=== PATIENT | female | born 2000 | race Hispanic/Latino ===

== ENCOUNTER 2022-08-26 03:47 | Inpatient (IN) | payer OTHER ==
[2022-08-26] MEDS ORDERED: Methylergonovine 0.2 MG/ML VIAL IM PRN ×2 (04:25→13:35)
[2022-08-26] MEDS ORDERED: Diphenoxylate HCl/Atropine Tablet PO PRN (04:25)
[2022-08-26] MEDS ORDERED: hydrALAZINE 20 MG/ML VIAL SLOW IVP PRN ×2 (04:25→13:35)
[2022-08-26] MEDS ORDERED: Carboprost 250 MCG/ML AMP IM PRN (04:25)
[2022-08-26] MEDS ORDERED: Lidocaine 1% (PF) 30 ML VIAL SC PRN (04:25)
[2022-08-26] MEDS ORDERED: Ondansetron PF 4 MG/2 ML Vial IVP PRN ×3 (04:25→13:35)
[2022-08-26] MEDS ORDERED: Tranexamic Acid 1,000 MG/10 ML VIAL IVP PRN (04:25)
[2022-08-26] MEDS ORDERED: Promethazine HCl 25 MG/ML VIAL IM PRN ×2 (04:25→06:09)
[2022-08-26] MEDS ORDERED: Misoprostol 200 MCG TAB PR PRN (04:25)
[2022-08-26] MEDS ORDERED: NS w/ Oxytocin 30 units 500 ML IV SCH ×3 (04:30→13:45)
[2022-08-26 04:50] VITALS: BMI 30.8
[2022-08-26 04:53] LABS: Hemoglobin 12.6 g/dL (12.0-15.5); Mean Corpuscular Hemoglobin 25.1 pg (27.0-33.0); Mean Corpuscular Volume 73.9 fl (81.6-98.3); Mean Platelet Volume 10.7 fl (7.4-10.4); Platelet Count 307 10x3/uL (150-450); RBC Distribution Width 22.6 % (11.5-14.5); Red Blood Cell (RBC) Count 5.02 10x6/uL (3.90-5.03)
[2022-08-26] MEDS ORDERED: Fentanyl 2 mcg/Bup 0.1% Cadd 100 ML ONE (04:53)
[2022-08-26 05:17] LABS: Syphilis Antibody Nonreactive (Nonreactive); Syphilis Antibody Index 0.05 S/CO (<1.00 Non-Reactive)
[2022-08-26 05:18] LABS: HBSAg Index 0.12 S/CO (0-0.99); Hep B Surf Ag - L&D Non-Reactive S/CO (NonReactive)
[2022-08-26] MEDS ORDERED: Moisturizing Cream (Eucerin) 113 GM JAR TOP PRN (06:09)
[2022-08-26] MEDS ORDERED: diphenhydrAMINE 50 MG/ML VIAL IVP PRN (06:09)
[2022-08-26] MEDS ORDERED: ePHEDrine Sulfate 50 MG/10 ML VIAL SLOW IVP PRN (06:09)
[2022-08-26] MEDS ORDERED: Naloxone HCl 0.4 mg/ml Vial IVP PRN ×2 (06:09)
[2022-08-26] MEDS ORDERED: Lactated Ringer's 500 ML IV PRN (06:09)
[2022-08-26] MEDS ORDERED: Acetaminophen 325 MG TAB PO PRN (06:09)
[2022-08-26] MEDS ORDERED: Fentanyl 2 mcg/Bupivacaine 0.1% Cassette 100 ML EPIDURAL SCH (06:15)
[2022-08-26] MEDS ORDERED: [UNRECOGNIZED DRUG - REMARK] FS PRN (06:15)
[2022-08-26 06:24] LABS: ALT (SGPT) 18 U/L (8-55); AST (SGOT) 19 U/L (5-30); Albumin 3.5 g/dL (3.5-5.0); Alkaline Phosphatase 233 U/L (40-100); Anion Gap 16 mmol/L (10-20); BUN (Urea Nitrogen) 9 mg/dL (8.4-21.0); Bilirubin, Total 0.3 mg/dL (0.2-1.2); Calc. Creatinine Clearance 168 mL/min (70-130); Calcium 9.4 mg/dL (7.8-10.44); Carbon Dioxide 18 mmol/L (22-29); Chloride 109 mmol/L (98-107); Estimated GFR 131; Globulin 3.2 g/dL (2.4-3.5); Glucose 98 mg/dL (70-105); Potassium 4.6 mmol/L (3.5-5.1); Protein, Total 6.7 g/dL (6.0-8.3); Sodium 138 mmol/L (136-145)
[2022-08-26 06:53] LABS: Creatinine, Urine 29.91 mg/dL (47-110); Protein, Urine Random Quant Less than 10 mg/dL (1-14)
[2022-08-26] MEDS ORDERED: Bupivacaine 0.25% HCL 30 ML VIAL ONE (08:00)
[2022-08-26] MEDS ORDERED: fentaNYL 50 mcg/mL 1 mL Vial ONE (08:59)
[2022-08-26] MEDS ORDERED: Acetaminophen 500 MG TAB PO SCH (11:30)
[2022-08-26] MEDS ORDERED: Ampicillin 2 GM VIAL ONE (11:31)
[2022-08-26] MEDS: Lactated Ringer's 1,000 ML IV SCH ×2 (11:44→13:42)
[2022-08-26] MEDS ORDERED: Gentamicin Sulfate 120 MG in Premix Bag 1 BAG IVPB SCH (12:00)
[2022-08-26] MEDS ORDERED: AMPicillin 2,000 MG in Syringe 0 ML SLOW IVP SCH (12:00)
[2022-08-26] MEDS ORDERED: GENTAMICIN IVPB SCH ×2 (12:00)
[2022-08-26] MEDS ORDERED: ADMIXTURE FEE IVPB SCH (12:00)
[2022-08-26] MEDS ORDERED: SODIUM CHLORIDE 0.9% IVPB SCH (12:00)
[2022-08-26] MEDS ORDERED: Ampicillin 2 GM in Sodium Chloride 0.9% 100 ML IVPB SCH (12:00)
[2022-08-26] MEDS ORDERED: SODIUM CHLORIDE IVPB SCH (12:00)
[2022-08-26 12:17] LABS: SARS-CoV-2 NAA Rapid Test Not Detected (NotDetected)
[2022-08-26] MEDS ORDERED: Lanolin Ointment 7 GM TUBE TOP PRN (13:35)
[2022-08-26] MEDS ORDERED: Milk Of Magnesia 30 ML UDCUP PO PRN (13:35)
[2022-08-26] MEDS ORDERED: Benzocaine-Menthol 82.5 ML CAN TOP PRN (13:35)
[2022-08-26] MEDS ORDERED: Bisacodyl 10 MG SUPP PR PRN (13:35)
[2022-08-26] MEDS ORDERED: Misoprostol 200 MCG TAB VAG PRN (13:35)
[2022-08-26] MEDS ORDERED: Preparation H Ointment 28 GM TUBE PR PRN (13:35)
[2022-08-26] MEDS ORDERED: Boostrix 0.5 ML (Tdap) VIAL (>/=7 yrs of age) IM ONE (14:00)
[2022-08-26] MEDS: Clindamycin/D5W 900 MG in Premix Bag 1 BAG IVPB SCH ×2 (15:14→21:25)
[2022-08-26] MEDS: Ibuprofen 800 MG TAB PO SCH ×2 (15:16→21:25)
[2022-08-26] MEDS: Ferrous Sulfate 325 MG TAB PO SCH (18:17)
[2022-08-26] MEDS ORDERED: Gentamicin 80 MG/2 ML VIAL IVPB SCH (19:30)
[2022-08-26] MEDS: ADMIXTURE FEE IVPB SCH (21:00)
[2022-08-26] MEDS: GENTAMICIN IVPB SCH (21:00)
[2022-08-26] MEDS ORDERED: Nitrofurantoin Monohyd/M-Cryst 100 MG CAP PO SCH (21:00)
[2022-08-26] MEDS: SODIUM CHLORIDE IVPB SCH (21:00)
[2022-08-26] MEDS: Docusate 100 MG CAP PO SCH (21:25)
[2022-08-27 02:45] LABS: #Eosinphils 0.2 10x3/uL (0.0-0.5); #Monocytes 1.3 10x3/uL (0.0-1.1); %Basophils 0.2 % (0.0-2.0); %Eosinophils 1.1 % (0.0-6.0); %Lymphocytes 12.3 % (18.0-47.0); %Monocytes 7.4 % (0.0-10.0); %Neutrophils 78.3 % (40.0-75.0); Hemoglobin 10.3 g/dL (12.0-15.5); Mean Corpuscular Hemoglobin 25.2 pg (27.0-33.0); Mean Corpuscular Volume 74.1 fl (81.6-98.3); Mean Platelet Volume 11.2 fl (7.4-10.4); Platelet Count 257 10x3/uL (150-450); RBC Distribution Width 22.2 % (11.5-14.5); Red Blood Cell (RBC) Count 4.09 10x6/uL (3.90-5.03); White Blood Cell (WBC) Count 17.9 10x3/uL (3.5-10.5)
[2022-08-27] MEDS: SODIUM CHLORIDE IVPB SCH ×3 (05:00→19:51)
[2022-08-27] MEDS: ADMIXTURE FEE IVPB SCH ×3 (05:00→19:51)
[2022-08-27] MEDS: GENTAMICIN IVPB SCH ×3 (05:00→19:51)
[2022-08-27] MEDS: Clindamycin/D5W 900 MG in Premix Bag 1 BAG IVPB SCH ×3 (05:03→21:07)
[2022-08-27] MEDS: Ibuprofen 800 MG TAB PO SCH ×3 (05:03→21:05)
[2022-08-27] MEDS: Docusate 100 MG CAP PO SCH ×2 (07:41→21:05)
[2022-08-27] MEDS: Prenatal Vitamin 1 TAB PO SCH (07:41)
[2022-08-27] MEDS: Ferrous Sulfate 325 MG TAB PO SCH (13:01)
[2022-08-28] MEDS: Ferrous Sulfate 325 MG TAB PO SCH ×2 (02:42→08:15)
[2022-08-28] MEDS: Ibuprofen 800 MG TAB PO SCH (06:54)
[2022-08-28] MEDS: Docusate 100 MG CAP PO SCH (08:15)
[2022-08-28] MEDS: Prenatal Vitamin 1 TAB PO SCH (08:15)
[2022-08-28 08:52] VITALS: BP 109/59; TEMP 98.1
== END 2022-08-28 12:40 | disposition home or self-care (01) | DRG 806 ==
LOC: CSHLD/OP 03:47 → CSHLD 04:14 → CSHPED 09:23 → CSHLD 09:26 → CSHPP 17:46
PROVIDERS: ADMIT Family Medicine; ATTEND Obstetrics & Gynecology
PROC: 10E0XZZ Delivery of Products of Conception, External Approach (ICD-10-PCS; principal; 2022-08-26)
PROC: 0KQM0ZZ Repair Perineum Muscle, Open Approach (ICD-10-PCS; 2022-08-26)
PROC: 10907ZC Drainage of Amniotic Fluid, Therapeutic from Products of Conception, Via Natural or Artificial Opening (ICD-10-PCS; 2022-08-26)
DX: O98.82 Other maternal infectious and parasitic diseases complicating childbirth (principal); N12 Tubulo-interstitial nephritis, not specified as acute or chronic; Z37.0 Single live birth; Z3A.38 38 weeks gestation of pregnancy; Z79.899 Other long term (current) drug therapy; Z79.82 Long term (current) use of aspirin; O70.1 Second degree perineal laceration during delivery; Z20.822 Contact with and (suspected) exposure to COVID-19
CPT/HCPCS: 36415; 51702; 80053; 82570; 84156; 85025; 85027; 86780; 86850; 86900; 86901; 87340; 99285; J0290; J1580; J2001; J2590; J3490; J7120; S0020

== ENCOUNTER 2023-06-25 01:49 | Emergency (ER) | payer OTHER ==
[2023-06-25 02:19] LABS: Bilirubin Neg (Negative); Blood, Urine 25 (Negative); Clarity Cloudy (Clear); Glucose, Urine (Dipstick) Normal (Negative); Ketone, Urine Negative (Negative); Leukocyte 500 (Negative); Nitrite Negative (Negative); Protein, Urine (Dipstick) 30 mg/dl (Neg-Trace); Urobilinogen Normal mg/dL (Less than 2); pH, Urine 6.5 (5.0-9.0)
[2023-06-25 02:27] LABS: Pregnancy Test - Urine (BHCG) Negative (Negative); Pregu Control Background? CLEAR/WHITE (CLR/WHITE); Pregu Control Bar Appear? YES (CONTROL BAR)
[2023-06-25 02:30] LABS: Bacteria/HPF 2+ HPF (None Seen); CAUTI Indications for Culture Dysuria,urgency,freq; RBC/HPF 0-3 HPF (0-3); Squamous Epithelial 0-3 HPF (0-3)
[2023-06-25 02:32] LABS: Urine Culture Reflex Yes Yes
[2023-06-25 02:47] LABS: #Eosinphils 0.6 10x3/uL (0.0-0.5); #Monocytes 0.7 10x3/uL (0.0-1.1); #Neutrophils 5.4 10x3/uL (1.5-8.4); %Basophils 0.3 % (0.0-2.0); %Eosinophils 6.8 % (0.0-6.0); %Lymphocytes 28.1 % (18.0-47.0); %Monocytes 7.5 % (0.0-10.0); %Neutrophils 56.9 % (40.0-75.0); Hematocrit 39.2 % (34.9-44.5); Hemoglobin 14.4 g/dL (12.0-15.5); Mean Corpuscular HGB CONC 36.7 g/dL (32.0-36.0); Mean Corpuscular Hemoglobin 29.6 pg (27.0-33.0); Mean Corpuscular Volume 80.5 fl (81.6-98.3); Mean Platelet Volume 10.1 fl (7.4-10.4); Platelet Count 301 10x3/uL (150-450); RBC Distribution Width 13.2 % (11.5-14.5); Red Blood Cell (RBC) Count 4.87 10x6/uL (3.90-5.03); White Blood Cell (WBC) Count 9.4 10x3/uL (3.5-10.5)
[2023-06-25] MEDS ORDERED: Ketorolac Tromethamine 30 MG (1 mL) VIAL ONE (03:01)
[2023-06-25 03:03] LABS: ALT (SGPT) 25 U/L (8-55); AST (SGOT) 19 U/L (5-34); Albumin 4.4 g/dL (3.5-5.0); Alkaline Phosphatase 109 U/L (40-100); Anion Gap 14 mmol/L (10-20); BUN (Urea Nitrogen) 15 mg/dL (7.0-18.7); Bilirubin, Total 0.5 mg/dL (0.2-1.2); Calc. Creatinine Clearance 0 mL/min (70-130); Calcium 9.2 mg/dL (7.8-10.44); Carbon Dioxide 22 mmol/L (22-29); Chloride 107 mmol/L (98-107); Estimated GFR 130; Globulin 3.3 g/dL (2.4-3.5); Glucose 107 mg/dL (70-105); Lipase 25 U/L (8-78); Potassium 3.7 mmol/L (3.5-5.1); Protein, Total 7.7 g/dL (6.0-8.3); Sodium 139 mmol/L (136-145)
== END 2023-06-25 03:20 | disposition home or self-care (01) ==
LOC: CSHERS 01:49
DX: N39.0 Urinary tract infection, site not specified (principal); Z55.6 Problems related to health literacy
CPT/HCPCS: 80053; 81001; 81025; 83690; 85025; 87077; 87086; 96372; 99284; J1885

== ENCOUNTER 2024-06-10 18:15 | Emergency (ER) | payer OTHER, SELFPAY ==
[~2024-06-10 18:15] MED LIST: Iopamidol 300 61% 100 ML VIAL FS ONE; Magnevist 469MG/ML 20 ML VIAL ONE
[2024-06-10 18:59] LABS: Pregnancy Test - Urine (BHCG) Negative (Negative); Pregu Control Background? CLEAR/WHITE (CLR/WHITE); Pregu Control Bar Appear? YES (CONTROL BAR)
[2024-06-10 19:07] LABS: Clarity Cloudy (Clear); Leukocyte Unable to Interpret (Negative)
[2024-06-10 19:08] LABS: Bilirubin Unable to Interpret (Negative); Blood, Urine Unable to Interpret (Negative); Glucose, Urine (Dipstick) Unable to Interpret mg/dL (Negative); Ketone, Urine Unable to Interpret mg/dL (Negative); Nitrite Unable to Interpret (Negative); Protein, Urine (Dipstick) Unable to Interpret mg/dl (Neg-Trace)
[2024-06-10 19:09] LABS: CAUTI Indications for Culture Pelvic or flank pain; Squamous Epithelial 0-3 HPF (0-3); WBC/HPF 21-50 HPF (0-3)
[2024-06-10 19:10] LABS: Bacteria/HPF None Seen HPF (None Seen); Urine Culture Reflex Yes Yes
[2024-06-10 19:44] LABS: #Basophils 0.04 10x3/uL (0.0-0.2); #Eosinophils 0.24 10x3/uL (0.0-0.5); #Monocytes 1.08 10x3/uL (0.0-1.1); #Neutrophils 13.04 10x3/uL (1.5-8.4); %Basophils 0.3 % (0.0-2.0); %Eosinophils 1.5 % (0.0-6.0); %Lymphocytes 8.1 % (18.0-47.0); %Monocytes 6.9 % (0.0-10.0); %Neutrophils 82.8 % (40.0-75.0); Hematocrit 39.4 % (34.9-44.5); Hemoglobin 14.1 g/dL (12.0-15.5); Mean Corpuscular HGB CONC 35.8 g/dL (32.0-36.0); Mean Corpuscular Hemoglobin 29.8 pg (27.0-33.0); Mean Corpuscular Volume 83.3 fL (81.6-98.3); Mean Platelet Volume 10.4 fL (7.4-10.4); Platelet Count 292 10x3/uL (150-450); RBC Distribution Width 12.9 % (11.5-14.5); Red Blood Cell (RBC) Count 4.73 10x6/uL (3.90-5.03); White Blood Cell (WBC) Count 15.74 10x3/uL (3.5-10.5)
[2024-06-10 20:02] LABS: ALT (SGPT) 21 U/L (Less than 34); AST (SGOT) 25 U/L (11-34); Albumin 4.4 g/dL (3.1-4.5); Alkaline Phosphatase 81 U/L (40-110); Anion Gap 16 mmol/L (10-20); BUN (Urea Nitrogen) 14 mg/dL (7.0-18.7); Bilirubin, Total 0.7 mg/dL (0.3-1.2); Calc. Creatinine Clearance 0 mL/min (70-130); Calcium 9.3 mg/dL (7.8-10.44); Carbon Dioxide 21 mmol/L (22-29); Chloride 104 mmol/L (98-107); Estimated GFR 133; Globulin 4.5 g/dL (2.4-3.5); Glucose 96 mg/dL (70-105); Lipase 20 U/L (8-78); Magnesium 2.2 mg/dL (1.6-2.6); Potassium 4.1 mmol/L (3.5-5.1); Protein, Total 8.9 g/dL (6.0-8.3); Sodium 137 mmol/L (136-145)
[2024-06-10] MEDS ORDERED: Cefepime 2 GM VIAL ONE (20:12)
[2024-06-10] MEDS ORDERED: Ketorolac Tromethamine 30 MG (1 mL) VIAL ONE (20:12)
[2024-06-10] MEDS ORDERED: Vancomycin 1 GM VIAL ONE (20:28)
[2024-06-10] MEDS ORDERED: Vancomycin HCl 500 MG VIAL ONE (20:29)
[2024-06-10] MEDS ORDERED: Ondansetron ODT 4 MG TAB PO PRN (23:06)
[2024-06-10] MEDS ORDERED: Ondansetron PF 4 MG/2 ML Vial IVP PRN (23:06)
[2024-06-10 23:12] VITALS: BMI 22.6
[2024-06-10 23:42] VITALS: BP 118/76; TEMP 98.7
[2024-06-10] MEDS ORDERED: FLU (Fluarix Triv) TS24-25(6MOS UP)/PF 45 MCG/0.5 ML Syringe IM ONE (23:45)
[2024-06-10] MEDS: Acetaminophen 325 MG TAB PO PRN (23:47)
[2024-06-12 01:49] LABS: Chlamydia by PCR, Vaginal Swab Not Detected (NotDetected); GC by PCR, Vaginal Swab Not Detected (NotDetected)
== END 2024-06-11 04:22 | disposition short-term general hospital (02) ==
LOC: CSHERS 18:15 → UNDOADMOB 20:59 → CSHTELE 20:59
DX: A41.89 Other specified sepsis (principal); B96.89 Other specified bacterial agents as the cause of diseases classified elsewhere; M99.85 Other biomechanical lesions of pelvic region
CPT/HCPCS: 36415; 72197; 74177; 80053; 81001; 81025; 83605; 83690; 83735; 84145; 85025; 87040; 87086; 87480; 87491; 87510; 87591; 87660; G0378; J0692; J1885; J3370; Q9967